=== PATIENT | female | born 1975 | race Hispanic/Latino ===

== ENCOUNTER 2017-03-01 04:23 | Outpatient (CLI) | payer BC | END 2017-03-01 04:24 | disposition home or self-care (01) | LOC: BICRAD 04:23 | PROVIDERS: ATTEND Family Medicine | DX: M79.671 Pain in right foot (principal); M79.672 Pain in left foot; M77.32 Calcaneal spur, left foot; M77.31 Calcaneal spur, right foot; R53.83 Other fatigue | CPT/HCPCS: 71010 ==

== ENCOUNTER 2017-12-12 11:20 | Outpatient (CLI) | payer BC ==
--- NOTE | 2017-12-12 15:02 | ULT ---
PELVIC SONOGRAM: HISTORY: Pelvic pain. TECHNIQUE: Transabdominal imaging with duplex evaluation. FINDINGS: The urinary bladder is incompletely distended. The uterus has a heterogeneous echotexture and is 7.9 cm. The endometrium is thickened at 1.2 cm and is somewhat hypoechoic. No free fluid within the pe lvis. The right ovary is 2.2 cm and the left is 3.4 cm. Each has a normal appearance with follicles and go od color and spectral Doppler flow. IMPRESSION: Thickened endometrium, 1.2 cm. No other significant abnormalities are demonstrated. POS: [facility]
== END 2017-12-12 11:21 | disposition home or self-care (01) ==
LOC: BICULT 11:20
PROVIDERS: ATTEND Family Medicine
DX: R93.8 Abnormal findings on diagnostic imaging of other specified body structures (principal); Z92.89 Personal history of other medical treatment
CPT/HCPCS: 76856; 93976

== ENCOUNTER 2018-06-07 15:16 | Outpatient (CLI) | payer BC ==
--- NOTE | 2018-06-07 17:28 | RAD ---
SINGLE VIEW OF THE CHEST: COMPARISON: None. HISTORY: Abnormal weight loss. FINDINGS: Single view of the chest shows a normal sized cardiomediastinal silhouette. There is no evidence of c onsolidation, mass, or pleural effusion. The bones are unremarkable. IMPRESSION: No evidence of acute cardiopulmonary disease. POS: [facility]
--- NOTE | 2018-06-07 17:29 | RAD ---
THREE VIEWS OF THE THORACIC SPINE: HISTORY: Thoracic radiculopathy after mopping in February. FINDINGS: Three views of the thoracic spine show normal height and alignment of the vertebral bodies and interv ertebral disks without fracture or subluxation. No degenerative changes are seen. IMPRESSION: No evidence of acute osseous abnormality. POS: [facility]
--- NOTE | 2018-06-07 17:34 | RAD ---
TWO VIEWS OF THE LUMBOSACRAL SPINE: COMPARISON: None. HISTORY: Lumbar radiculopathy after mopping in February at work. FINDINGS: Three views lumbosacral spine show grade I anterolisthesis of L5 on S1. There are questionable pars defects at L5. Posterior facet arthrosis is seen at L5-S1. No other degenerative changes are seen. IMPRESSION: Degenerative changes of the lower lumbosacral spine without acute osseous abnormality. POS: [facility]
--- NOTE | 2018-06-07 17:51 | RAD ---
FOUR VIEWS CERVICAL SPINE 06/07/18 HISTORY: Cervicalgia. Neck and shoulder pain. FINDINGS: C1 to C7 is seen on the lateral view. Cervicothoracic junction is obscured by overlying structures, b ut there does not appear to be evidence of subluxation. This level is seen on Swimmer's view of the c ervical spine which was obtained on views of the thoracic spine also obtained on this date. Vertebral body heights and vertebral disc spaces are within normal limits involving the cervical spin e. There is straightening of the normal cervical lordotic curvature. Interspinous distances are withi n normal limits. No fracture or subluxation is identified. Prevertebral soft tissues are within karla l limits. IMPRESSION: 1. No fracture or subluxation involving the cervical spine. 2. Straightening of the normal cervical lordotic curvature which may be related to muscle spasm or po sitioning. POS: [facility]
== END 2018-06-07 15:17 | disposition home or self-care (01) ==
LOC: BICRAD 15:16
PROVIDERS: ATTEND Family Medicine
DX: M54.14 Radiculopathy, thoracic region (principal); M54.17 Radiculopathy, lumbosacral region; M54.2 Cervicalgia; M54.5 Low back pain; R63.4 Abnormal weight loss; M43.9 Deforming dorsopathy, unspecified; M47.817 Spondylosis without myelopathy or radiculopathy, lumbosacral region
CPT/HCPCS: 71045; 72040; 72072; 72100

== ENCOUNTER 2018-06-19 14:47 | Outpatient (CLI) | payer BC ==
--- NOTE | 2018-06-19 15:26 | MMO ---
Bilateral MAMMO Bilat Screen [facility]. CLINICAL HISTORY: Patient is 43 years old and is seen for screening. The patient has no family history of breast cancer. The patient has no personal history of cancer. The patient has a history of bilateral Implants in November, - benign. VIEWS: The views performed were: bilateral craniocaudal; bilateral mediolateral oblique; and bilateral Implant displaced with tomosynthesis. FILMS COMPARED: The present examination has been compared to prior imaging studies performed at [facility] on 06/21/2011 and 07/26/2012. MAMMOGRAM FINDINGS: There are scattered fibroglandular densities. There are no suspicious masses, suspicious calcifications, or new areas of architectural distortion. IMPRESSION: THERE IS NO MAMMOGRAPHIC EVIDENCE OF MALIGNANCY. A ROUTINE FOLLOW-UP MAMMOGRAM IN 1 YEAR IS RECOMMENDED. THE RESULTS OF THIS EXAM WERE SENT TO THE PATIENT. ACR BI-RADS Category 1 - Negative MAMMOGRAPHY NOTE: 1. A negative mammogram report should not delay a biopsy if a dominant of clinically suspicious mass is present. 2. Approximately 10% to 15% of breast cancers are not detected by mammography. 3. Adenosis and dense breasts may obscure an underlying neoplasm.
--- NOTE | 2018-06-19 16:43 | BD ---
Exam: DEXA Bone Density 06/19/18 INDICATIONS: 43-year-old female postmenopausal. Osteoporosis screening. The lumbar spine was not evaluated due to umbilical jewelry which interfered with the L4 density. Bot h hips were evaluated. Hips: BMD (g/cm2) Right Femoral Neck: 0.656 T-Score: -1.7 Total Femur: 1.009 T-Score: 0.5 Left Femoral Neck: 0.691 T-Score: -1.4 Total Femur: 0.990 T-Score: 0.4 Impression: Both femoral necks indicate osteopenia. Femur fractures: Major osteoporotic fracture: 3.7% Hip fracture: 0.5%. POS: [facility]
== END 2018-06-19 14:48 | disposition home or self-care (01) ==
LOC: BICMAMMO 14:47
PROVIDERS: ATTEND Family Medicine
DX: Z12.31 Encounter for screening mammogram for malignant neoplasm of breast (principal); M85.851 Other specified disorders of bone density and structure, right thigh; M85.852 Other specified disorders of bone density and structure, left thigh; Z98.82 Breast implant status; Z78.0 Asymptomatic menopausal state
CPT/HCPCS: 77063; 77067; 77080

== ENCOUNTER 2022-01-19 15:12 | Emergency (ER) | payer BC ==
[2022-01-19] MEDS ORDERED: HYDROcodone/Acetaminophen 5/325 mg Tablet ONE (16:51)
== END 2022-01-19 17:36 | disposition home or self-care (01) ==
LOC: ERS 15:12
DX: M79.672 Pain in left foot (principal)